=== PATIENT | female | born 1960 | race Caucasian/White ===

== ENCOUNTER 2018-03-20 11:59 | Emergency (ER) | payer BC ==
[2018-03-20 12:13] VITALS: PULSE 80; O2SAT 98
[2018-03-20] MEDS ORDERED: Pepcid 20 MG PO ONE (12:29)
[2018-03-20] MEDS ORDERED: Pepcid 20 MG ONE (12:34)
--- NOTE | 2018-03-20 12:35 | ERPHSYRPT ---
- History of Present Illness Time Seen by Provider: 03/20/18 12:20 Patient Subjective Stated Complaint: PT states "I started augmentin this morning at 1000 am and I have never had a reaction to it before but today I did. " Triage Nursing Assessment: Pt alert and oriented X 3, skin pwd. PT skin red, no urticaria noted. Pt in no apparent respiratory distress. Physician History: PATIENT WITH A HISTORY OF HYPERTENSION COMPLAINS OF ACUTE ONSET ONE HALF HOUR PRIOR TO ARRIVAL TO EMERGENCY ROOM AFTER SHE TOOK ANABIOTIC AUGMENTIN 1 HOUR PREVIOUS TO SYMPTOMS. PATIENT STATES SHE TO BENADRYL 100 MG FOR THE ITCHING AND RASH. PATIENT DENIES DIFFICULTY BREATHING OR SWALLOWING. PATIENT TAKES ANABIOTIC FOR LOCALIZED SKIN INFECTION OF LEFT CALF. Timing/Duration: today Quality: itchy Severity: severe Location: extremities, generalized Possible Causes: other (ANTIBIOTIC) Modifying Factors: Improves With: antihistamine Associated Symptoms: denies symptoms Allergies/Adverse Reactions: prednisone Allergy (Severe, Verified 05/09/12 12:39) Rash amoxicillin [From Augmentin] Allergy (Intermediate, Verified 03/20/18 12:14) Rash clavulanic acid [From Augmentin] Allergy (Intermediate, Verified 03/20/18 12:14) Rash methylprednisolone [From Solu-Medrol] Allergy (Verified 03/20/18 12:14) Rash Home Medications: Dabigatran Etexilate Mesylate [Pradaxa] 150 mg PO BID 05/09/12 [History] Escitalopram Oxalate [Lexapro] 10 mg PO DAILY 05/09/12 [History] Fluticasone Furoate [Veramyst] 10 gm NS BID 05/09/12 [History] Lisinopril 5 mg [Zestril 5 MG] 5 mg PO DAILY 05/09/12 [History] Magnesium Oxide 400 mg [Mag-Ox 400] 400 mg PO DAILY 05/09/12 [History] Metoprolol Tartrate [Lopressor] 100 mg PO BID 05/09/12 [History] Hx Tetanus, Diphtheria Vaccination/Date Given: No Hx Influenza Vaccination/Date Given: Yes Hx Pneumococcal Vaccination/Date Given: No Immunizations Up to Date: Yes - Review of Systems Constitutional: No Fever, No Chills Eyes: No Symptoms Ears, Nose, & Throat: No Symptoms Respiratory: No Symptoms, No Cough, No Dyspnea Cardiac: No Symptoms, No Chest Pain, No Edema, No Syncope Abdominal/Gastrointestinal: No Abdominal Pain, No Nausea, No Vomiting, No Diarrhea Genitourinary Symptoms: No Dysuria Musculoskeletal: No Symptoms, No Back Pain, No Neck Pain Skin: Pruritis, Skin Lesions, No Rash Neurological: No Symptoms, No Dizziness, No Focal Weakness, No Sensory Changes Psychological: No Symptoms Endocrine: No Symptoms All Other Systems: Reviewed and Negative - Past Medical History Pertinent Past Medical History: Yes Neurological History: Migraines ENT History: No Pertinent History Cardiac History: Arrhythmia, Hypertension Respiratory History: No Pertinent History Endocrine Medical History: No Pertinent History Musculoskeletal History: Arthritis GI Medical History: No Pertinent History History: No Pertinent History Psycho-Social History: No Pertinent History Female Reproductive Disorders: No Pertinent History Other Medical History: Anemia - Past Surgical History Past Surgical History: Yes Neuro Surgical History: No Pertinent History Cardiac: Cardiac Catheterization Respiratory: No Pertinent History Gastrointestinal: Other Genitourinary: No Pertinent History Musculoskeletal: Orthopedic Surgery, Other Female Surgical History: Section, Tubal Ligation Other Surgical History: Back surgery. T&A - Social History Smoking Status: Never smoker Exposure to second hand smoke: No Drug Use: none Patient Lives Alone: No - Female History Hx Now: No - Nursing Vital Signs Nursing Vital Signs: Initial Vital Signs Temperature 98.2 F 03/20/18 12:04 Pulse Rate 80 03/20/18 12:04 Respiratory Rate 20 03/20/18 12:04 Blood Pressure 138/68 03/20/18 12:04 O2 Sat by Pulse Oximetry 98 03/20/18 12:04 Pain Scale Pain Intensity 0 - Physical Exam General Appearance: no apparent distress, alert Eye Exam: PERRL/EOMI, eyes nml inspection Ears, Nose, Throat Exam: normal ENT inspection, pharynx normal, moist mucous membranes, other (POSTERIOR PHARYNX WITHOUT ANGIOEDEMA) Neck Exam: normal inspection, non-tender, supple, full range of motion Respiratory Exam: normal breath sounds, lungs clear, No respiratory distress Cardiovascular Exam: regular rate/rhythm, normal heart sounds Gastrointestinal/Abdomen Exam: soft, mass, No tenderness Back Exam: normal inspection, normal range of motion, No CVA tenderness, No vertebral tenderness Extremity Exam: normal inspection, normal range of motion Neurologic Exam: alert, oriented x 3, cooperative, normal mood/affect, sensation nml, No motor deficits Skin Exam: normal color, warm, dry, other (GENERALIZED ERYTHRMA, 3 LESIONS LEFT CALF PROXIMAL HEALED SCABED, TENDERNESS, SURROUNDING ERYTHEMA) SpO2 Interpretation: normal SpO2: 98 Ordered Tests: Medication Summary Discontinued Medications Generic Name Dose Route Start Last Admin Trade Name Caliq PRN Reason Stop Dose Admin Famotidine 20 mg 03/20/18 12:29 03/20/18 12:36 Pepcid 20 Mg PO 03/20/18 12:30 20 mg STAT ONE Administration Famotidine Confirm 03/20/18 12:34 Pepcid 20 Mg Administered 03/20/18 12:35 Dose 20 mg .ROUTE .[employer]-MED ONE - Progress Progress Note: 03/20/18 12:50 PATIENT TOOK BENADRYL 100MG 30 MINUTES PRIOR TO ARRIVAL, ADMINISTERED PEPCID 20MG ORALLY Counseled pt/family regarding: diagnosis, need for follow-up - Departure Time of Disposition: 13:04 Departure Disposition: Home (1305) Clinical Impression: ALLERGIC REACTION, DRUG RASH Condition: Stable Critical Care Time: No Referrals: VALERY YUEN MD [Primary Care Provider] - Additional Instructions: CONTINUE BENADRYL 50MG OVER THE COUNTER EVERY 4 HOURS NEEDED FOR ITCHING. PEPCID 20MG TWICE DAILY FOR ITCHING. EPI PEN 2 SAIGE INJECTION NEEDED FOR ONSET OF HIVES. CONSULT YOUR PRIMARY CARE PROVIDER FOR FOLLOWUP. Prescriptions: EPINEPHrine [Epipen 0.3 MG] 2 ml IM DAILY PRN PRN #2 ml PRN Reason: ALLERGIC REACTION Famotidine 20 mg [Pepcid 20 MG] 20 mg PO BID #10 tablet
[2018-03-20 13:01] VITALS: BP 136/60
== END 2018-03-20 13:13 | disposition home or self-care (01) ==
LOC: ED 11:59
DX: T50.995A Adverse effect of other drugs, medicaments and biological substances, initial encounter (principal); L27.0 Generalized skin eruption due to drugs and medicaments taken internally; I10 Essential (primary) hypertension; M19.90 Unspecified osteoarthritis, unspecified site; Z79.899 Other long term (current) drug therapy
CPT/HCPCS: 99283; A9270-GY